=== PATIENT | male | born 1945 ===

== ENCOUNTER → 2017-10-16 | Outpatient (REF) | payer MEDICARE ==
[2017-10-16 15:41] LABS: C REACTIVE PROTEIN QUANTITATIV 1.05 MG/DL (0.00-0.30)
[2017-10-16 15:41] LABS: RHEUMATOID FACTOR QUANT < 10.0 IU/ML (0-15.0)
[2017-10-16 15:54] LABS: ERYTHROCYTE SEDIMENTATION RATE 9 mm/hr (0-20)
== END ==
LOC: M LABDRAW1 14:48
DX: M47.896 Other spondylosis, lumbar region (principal)
CPT/HCPCS: 86140

== ENCOUNTER → 2018-01-24 | Outpatient (REF) | payer MEDICARE ==
[2018-01-24 12:23] LABS: C REACTIVE PROTEIN QUANTITATIV 0.53 MG/DL (0.00-0.30)
[2018-01-24 12:41] LABS: PLATELET COUNT, AUTOMATED 208 10^3/uL (150-450)
[2018-01-24 12:56] LABS: INR 0.98; PARTIAL THROMBOPLASTIN TIME 33.3 SECONDS (26.8-37.9); PROTHROMBIN TIME 13.1 SECONDS (12.4-14.5)
[2018-01-24 13:05] LABS: ERYTHROCYTE SEDIMENTATION RATE 14 mm/hr (0-20)
== END ==
LOC: M LABDRAW1 11:45
DX: M47.896 Other spondylosis, lumbar region (principal); Z79.01 Long term (current) use of anticoagulants
CPT/HCPCS: 86140